=== PATIENT | male | born 1980 | race Two or more races ===

== ENCOUNTER 2022-04-19 09:55 | Outpatient (CLI) | payer OTHER ==
[2022-04-19 10:56] VITALS: BP 130/80
--- NOTE | 2022-04-19 10:56 | SLEEP CARE CONSULTATION ---
Information from patient questionnaire entered by Ramone Sim. I have reviewed and concur with the information entered by Ramone Sim. This document represents the service I personally performed and the decisions made by me, Jeane Stanley ARNP. History of Present Illness Service Date and Time: 04/19/2022 0955 Reason for Visit: New patient, Previously diagnosed sleep apnea, sleep apnea on CPAP therapy Chief Complaint: reports: Unrefreshed sleep, Snoring, Observed pauses in breathing, Frequent awakenings at night, Other (UPDATE SUPLIES) Date of Onset: 5 YEARS Usual bedtime: 9PM-430AM Time it takes to fall asleep: 45MIN Snores at night: Yes Observed to quit breathing while asleep: Yes Sleeps alone due to snoring: Yes Number of times waking at night: 2-3 Reasons for waking at night: reports: Snoring, Gasping for air, Other (UNKNOWN REASONS) Toss, Turn, or Twitch while sleeping: No Recalls having dreams: Yes Usually gets out of bed at: 430AM Feels refreshed in the morning: No Morning headache: No Sleepy or fatigued during the day: Yes Ever fallen asleep while driving: Yes Takes day naps: No Dreams during day naps: No Prior sleep studies: Yes (08/2017 [facility] ) Type of Sleep Study: Polysomnography Additional HPI information: OMI CELESTIN was previously diagnosed to have unknown, AHI unknown, sleep apnea-hypopnea syndrome and comes in today to establish care for CPAP therapy. - Parasomnia Symptoms Ever been unable to move upon waking from sleep: No Walks in sleep: No Talks in sleep: No Ever acted out dreams in sleep: No Ever felt weak in the knees when startled or emotional: No Bothered by creepy, crawly, restless sensations in legs: No Problems with memory or concentration: Yes CPAP Compliance Data - Data Reviewed with Patient Average duration of nightly device use: 2.3 hours Compliance rate %: 3 (07/10 days used) Current pressure setting (cmH2O): 4-10 Humidity settin Average residual AHI: 0.8 Average large leak: 2/lpm Compliance data discussion: Patient has an Airsense 10 that is about 5 years old. He has not used it much but he has not got any supplies for 4 years. He also feels the pressure is too l ow, air hunger. His ramp is set at 4 cmH2O with 10 minutes ramp time. His EPR is off. He is using a full face mask, ResMed AirTouch F20 mask. Subjective Patient concerns: reports: condensation in mask/hose. denies: aerophagia, mask discomfort, air blowing in eyes, mask leak noise, nasal congestion, dry mouth, nose, throat, epistaxis Observed to snore while using device: No Current pressure setting perceived as: too low On therapy, patient: reports: sleeping better, awakening more refreshed, being more awake and alert during the day, more rested overall. denies: drowsiness while driving Initial [place] Sleepiness Scale score: 12 (04/18/2022) Past Medical History Past Medical History: reports: Other (Acne; high cholesterol) Social History The patient's occupation is a AM. Patient is and lives in [place]. Have you smoked in the past 12 months: No Alcohol use: Yes Alcohol amount and frequency: 3 MONTHLY Caffeine use: Yes Caffeine amount and frequency: 2-3 CUPS DAILY Family History Family history of sleep disordered breathing: No Allergies and Home Medications Known drug allergies: No Drug allergies reviewed: Yes (NKDA) Home medication list reviewed: Yes Allergy and home medication list: Medications: exetimibe 10 mg oral tretinoin 0.05% topical cream clinamycin-benzoyl peroxide topical gel doxycycline hyclate 100 mg Review of Systems Weight gain over past 5 years: 25 lbs Musculoskeletal: reports: back pain Physical Exam Vital signs obtained and entered by: ARMONE Duong MA Blood Pressure: 130/80 (LEFT ARM) Cuff size: regular Heart Rate: 65 O2 Saturation: 97 Height: 6 ft 3 in Weight: 254 lb 12.8 oz Body Mass Index: 31.8 BMI Classification: Obese Neck circumference: 18.75 Impression and Plan 1. Obstructive Sleep Apnea-Hypopnea Syndrome, unknown, with poor treatment compliance and good apnea control. On CPAP therapy, the patient has better sleep quality and is more rested overall. We do not have a copy of last sleep study in 2018, but this has been requested. Patient has tried to use his CPAP but [place] was on a ship and was not always able to plug the machine in. He is now back from ship but he has not gotten any supplies for about 4 years. He last obtained them from a company in [place]. He would like to get more supplies so he can use his machine regularly. For patient supply concerns. I will have my rehabilitation program coordinator inform of DME options. A DWO prescription will then be made. Patient advised to contact this office if further supply problems. Patient's apnea severity and rationale for treatment to reduce apnea, improve sleep quality and reduce cardiovascular and cerebrovascular events was reviewed. I will make the DWO prescription once I have his sleep study from [place]. If unable to obtain, will order a sleep study. 2. Obesity, unspecified. Currently patients BMI is 31.8. Obesity increases the risk of apnea, CPAP pressure requirements and overall health risks especially cardiovascular and diabetes. Thus patient is advised to lose weight. * Change auto CPAP pressure to 8-10 cmH2O * Obtain copy of sleep study prior to writing prescription * Transfer DME * Update supplies * Notify me if snoring with mask or feeling that the pressure is too much or too little * Attempt to lose weight * Call this office if any problems using CPAP * Return for follow up in 1-2 months, or sooner if concerns arise Counseling Topics: Weight loss health impact Visit Type: In Office Time Spent with Patient (minutes): 34 Provider Statement: I spent 100% of the Face to Face Visit with the patient with greater than 50% spent counseling the patient and coordination of care.
== END 2022-04-19 09:56 | disposition home or self-care (01) ==
LOC: SC 09:55
PROVIDERS: ATTEND Nurse Practitioner Family
DX: G47.33 Obstructive sleep apnea (adult) (pediatric) (principal); E66.9 Obesity, unspecified; Z68.31 Body mass index [BMI] 31.0-31.9, adult
CPT/HCPCS: 99203; 99212

== ENCOUNTER 2022-06-15 08:12 | Outpatient (CLI) | payer OTHER ==
[2022-06-15 08:49] VITALS: BP 114/76
--- NOTE | 2022-06-15 08:49 | SLEEP CARE CONSULTATION ---
Information from patient questionnaire entered by Mikaela Sim. I have reviewed and concur with the information entered by Mikaela Sim. This document represents the service I personally performed and the decisions made by me, Jeane Stanley ARNP. History of Present Illness Service Date and Time: 06/15/2022 0812 Previous diagnosis: Mild, Obstructive Sleep Apnea-Hypopnea Syndrome AHI: 7.3 (RDI 12.8; 08/2017) Reason for follow up: other (2 MONTH F/U PRESSURE CHANGE ) Equipment type: CPAP (RESMED) Equipment obtained from: [facility] (possibly?) Mask style: Full face Backup mask available: Yes (other mask) Prior sleep studies: Yes HPI additional information: OMI CELESTIN was diagnosed to have mild, AHI 7.3, obstructive sleep apnea- hypopnea syndrome and returned today for CPAP therapy two month follow-up. CPAP Compliance Data - Data Reviewed with Patient Average duration of nightly device use: 4 hours 50 minutes Compliance rate %: 20 (60 days used) Current pressure setting (cmH2O): 8-10 Average residual AHI: 1.7 Central apnea: 0.5 Obstructive apnea: 0.3 Subjective Missed days of use due to: reports: mask issues (just got new supplies about 1 week ago), other (will fall asleep on couch) Patient concerns: denies: aerophagia, mask discomfort, air blowing in eyes, mask leak noise, condensation in mask/hose, nasal congestion, dry mouth, nose, throat, epistaxis Observed to snore while using device: No Current pressure setting perceived as: comfortable On therapy, patient: reports: sleeping better, awakening more refreshed, being more awake and alert during the day, more rested overall. denies: drowsiness while driving Initial [place] Sleepiness Scale score: 12 (04/2022) Current [place] Sleepiness Scale score: 16 (06/16/22) Allergies and Home Medications Drug allergies reviewed: Yes (NKDA) Home medication list reviewed: Yes (no changes) Review of Systems Review of systems same as previous: Yes (no changes) Physical Exam Vital signs obtained and entered by: MIKAELA Duong MA Blood Pressure: 114/76 (LEFT ARM) Cuff size: regular Heart Rate: 62 O2 Saturation: 99 Height: 6 ft 2 in Weight: 260 lb 3.2 oz Body Mass Index: 33.4 BMI Classification: Obese Impression and Plan 1. Obstructive Sleep Apnea-Hypopnea Syndrome, mild, with fair treatment compliance and good apnea control. On CPAP therapy, the patient has better sleep quality and is more rested overall. Patient states he got his new supplies about a week ago. He is not having any complaints with the new full face mask. He states he still has a habit of falling asleep on the couch and forgetting to put on his CPAP. I encouraged him to set an alarm to wake him up to go to bed so that he can remember to put his CPAP on nightly. He voiced understanding and agreement. I will have him come in to recheck compliance in 1 to 2 months. Patient's apnea severity and rationale for treatment to reduce apnea, improve sleep quality and reduce cardiovascular and cerebrovascular events was reviewed. 2. Obesity, unspecified. Currently patients BMI is 33.4. Obesity increases the risk of apnea, CPAP pressure requirements and overall health risks especially cardiovascular and diabetes. Thus patient is advised to lose weight. * Continue auto CPAP pressure at 8-10 cmH2O * Notify me if snoring with mask or feeling that the pressure is too much or too little * Attempt to lose weight * Call this office if any problems using CPAP * Return for follow up in 1-2 months, or sooner if concerns arise Counseling Topics: Spare mask, Weight loss health impact Visit Type: In Office Time Spent with Patient (minutes): 12 Provider Statement: I spent 100% of the Face to Face Visit with the patient with greater than 50% spent counseling the patient and coordination of care.
== END 2022-06-15 08:13 | disposition home or self-care (01) ==
LOC: SC 08:12
PROVIDERS: ATTEND Nurse Practitioner Family
DX: G47.33 Obstructive sleep apnea (adult) (pediatric) (principal); E66.9 Obesity, unspecified; Z68.33 Body mass index [BMI] 33.0-33.9, adult
CPT/HCPCS: 99212

== ENCOUNTER 2022-07-14 08:03 | Outpatient (CLI) | payer OTHER ==
[2022-07-14 08:36] VITALS: BP 134/82
--- NOTE | 2022-07-14 08:36 | SLEEP CARE CONSULTATION ---
Information from patient questionnaire entered by Ramone Sim. I have reviewed and concur with the information entered by Ramone Sim. This document represents the service I personally performed and the decisions made by , Jeane Stanley ARNP. History of Present Illness Service Date and Time: 07/14/2022 08 Previous diagnosis: Mild, Obstructive Sleep Apnea-Hypopnea Syndrome AHI: 7.3 Reason for follow up: one month (F/U) Equipment type: CPAP (Resmed Airsense 10 s/u 09/2017) Equipment obtained from: [employer] ([employer]) Mask style: Full face Mask brand: Resmed (Airfit F20) Backup mask available: Yes (other mask) Last cushion change: 1 month Prior sleep studies: Yes Type of Sleep Study: Polysomnography HPI additional information: OMI CELESTIN was diagnosed to have mild, AHI 7.3, obstructive sleep apnea- hypopnea syndrome and returned today for CPAP therapy one month follow-up. Sleep Study - Results Type of Sleep Study: Polysomnography Prior sleep studies: Yes CPAP Compliance Data - Data Reviewed with Patient Average duration of nightly device use: 5 HRS 7 MIN Compliance rate %: 77 (06/13/22-07/12/22; 29/30 days used) Current pressure setting (cmH2O): 8-10 Average residual AHI: 1.9 Central apnea: 0.6 Obstructive apnea: 0.6 Average large leak: 1.0 lpm Subjective Patient concerns: reports: mask discomfort (mask cushion may be too small - is sliding down on face), air blowing in eyes, dry mouth, nose, throat. denies: aerophagia, mask leak noise, condensation in mask/hose, nasal congestion, epistaxis Observed to snore while using device: No Current pressure setting perceived as: comfortable On therapy, patient: reports: sleeping better, awakening more refreshed, being more awake and alert during the day, more rested overall. denies: drowsiness while driving Initial [place] Sleepiness Scale score: 12 Current [place] Sleepiness Scale score: 10 (07/14/22) Allergies and Home Medications Drug allergies reviewed: Yes (NKDA) Home medication list reviewed: Yes (no changes) Review of Systems Review of systems same as previous: Yes (no changes) Physical Exam Vital signs obtained and entered by: RAMONE Duong MA Blood Pressure: 134/82 (LEFT ARM) Cuff size: regular Heart Rate: 78 O2 Saturation: 96 Height: 6 ft 2 in Weight: 253 lb 9.6 oz Body Mass Index: 32.5 BMI Classification: Obese Impression and Plan 1. Obstructive Sleep Apnea-Hypopnea Syndrome, mild, with good treatment compliance and good apnea control. On CPAP therapy, the patient has better sleep quality and is more rested overall. Patient has significant improvement of their sleep apnea and are satisfied with current CPAP therapy. Patient has had some mask issues, he thinks the mask cushion is a little too big. I advised him to contact the DME to try a smaller mask cushion size and he voiced understanding. Patient's apnea severity and rationale for treatment to reduce apnea, improve sleep quality and reduce cardiovascular and cerebrovascular events was reviewed. 2. Obesity, unspecified. Currently patients BMI is 32.5. Obesity increases the risk of apnea, CPAP pressure requirements and overall health risks especially cardiovascular and diabetes. Thus patient is advised to lose weight. * Continue auto CPAP pressure at 8-10 cmH2O * Notify me if snoring with mask or feeling that the pressure is too much or too little * Attempt to lose weight * Call this office if any problems using CPAP * Return for follow up in 1 year, or sooner if concerns arise Counseling Topics: Spare mask, Weight loss health impact Visit Type: In Office Time Spent with Patient (minutes): 17 Provider Statement: I spent 100% of the Face to Face Visit with the patient with greater than 50% spent counseling the patient and coordination of care.
== END 2022-07-14 08:04 | disposition home or self-care (01) ==
LOC: SC 08:03
PROVIDERS: ATTEND Nurse Practitioner Family
DX: G47.33 Obstructive sleep apnea (adult) (pediatric) (principal); E66.9 Obesity, unspecified; Z68.32 Body mass index [BMI] 32.0-32.9, adult
CPT/HCPCS: 99212